=== PATIENT | female | born 1970 | race Two or more races ===

== ENCOUNTER 2018-06-09 16:58 | Emergency (ER) | payer OTHER ==
[2018-06-09 17:04] VITALS: BP 141/97
[2018-06-09] MEDS ORDERED: LIDOCAINE 1% 2 ML VIAL SUBQ STA (17:53)
[2018-06-09] MEDS ORDERED: TETANUS/DIPHTHERIA/PERTUSSIS 0.5 ML SYRINGE IM ONE (17:54)
--- NOTE | 2018-06-09 18:43 | ED Physician Documentation ---
History of Present Illness - Stated complaint Stated Complaint: RT PALM LAC - Chief complaint Chief Complaint: Laceration - History obtained from History obtained from: Patient - Additonal information Additional information: 48-year-old female presents the emergency department after a laceration to her right palm which occurred just prior to arrival. The patient denies any loss of function in her hand or numbness and tingling. The bleeding currently is controlled. No other injury. Symptoms are described as mild Review of Systems Constitutional: denies: Fever Skin: reports: Laceration (s). denies: Rash, Lesions, Abrasion (s) Musculoskeletal: reports: Extremity pain. denies: Extremity swelling, Joint swelling Neurologic: denies: Syncope Immunocompromised: denies: Chemotherapy PD PAST MEDICAL HISTORY - Present Medications Home Medications: Ambulatory Orders Medication Instructions Recorded Confirmed No Known Home Medications [No 06/09/18 06/09/18 Known Home Medications] - Allergies Allergies/Adverse Reactions: Allergies Allergy/AdvReac Type Severity Reaction Status Date / Time meperidine [From Demerol] Allergy Anaphylaxis Verified 06/09/18 17:04 PD ED PE NORMAL - General General: Alert and oriented X 3, No acute distress - HEENT HEENT: Atraumatic, PERRL, EOMI, Ears normal - Derm Derm: Other (1 cm laceration on the volar aspect of the right hand) - Extremities Extremities: Other (The patient has full active range of motion of her right hand. Normal sensation light touch. There is no evidence of ligamentous or tendon injury.) - Neuro Neuro: Alert and oriented X 3, Normal speech - Psych Psych: Normal mood Results - Vitals Vitals: Vital Signs - 24 hr 06/09/18 17:02 Temperature 36 C L Heart Rate 85 Respiratory 20 Rate Blood Pressure 141/97 H O2 Saturation 93 Oxygen O2 Source Room air Procedures - Laceration (location) Hand right Length in cm: 1 Wound type: Linear Neurovascular status: Sensory intact, Motor intact, Vascular intact Anesthesia: Lidocaine 1% Wound Preparation: Betadine, Irrigated copiously NS Skin layer closure: Nylon, Interrupted, Sutures - enter # (4) Other: Patient tolerated well Complexity: Simple PD MEDICAL DECISION MAKING - ED course ED course: The wound was repaired, I advised having the sutures removed in 7 days. I discussed warning signs for infection and advised returning to the emergency department for any worsening or any concerns. - Sepsis Event Vital Signs: Vital Signs - 24 hr 06/09/18 17:02 Temperature 36 C L Heart Rate 85 Respiratory 20 Rate Blood Pressure 141/97 H O2 Saturation 93 Oxygen O2 Source Room air Departure - Departure Disposition: 01 Home, Self Care Clinical Impression: Laceration Condition: Good Instructions: ED Laceration All Comments: Please have the sutures removed in 7 days. Please return to the emergency department for worsening symptoms or any concerns Discharge Date/Time: 06/09/18 18:59
[2018-06-09] MEDS ORDERED: LIDOCAINE 2% 10 ML MDV ONE (18:46)
== END 2018-06-09 18:59 | disposition home or self-care (01) ==
LOC: ED 16:58
DX: S61.411A Laceration without foreign body of right hand, initial encounter (principal); W25.XXXA Contact with sharp glass, initial encounter; Y93.G1 Activity, food preparation and clean up; Z23 Encounter for immunization
CPT/HCPCS: 12001; 90471; 99282; 99283